=== PATIENT | female | born 1980 | race Caucasian/White ===

== ENCOUNTER 2017-10-27 16:41 | Emergency (ER) | payer SELFPAY ==
[~2017-10-27] VITALS: Ht 139.7 cm; Wt 50.0 kg
[~2017-10-27 16:41] MED LIST: BACTRIM DS1 TAB OR; CIPRO500 MG OR; CIPROFLOXACN500 MG PO; CLARITHROMYC500 M2 PO; CLEOCIN150 MG OR; CORTISPORIN OTI10 ML AD; HEMOCYTE325 MG OR; LORTAB 1010 MG PO; LORTAB5 OR; METHIMAZOLE5 MG OR; METRONIDAZOL500 MG PO; NAPROSYN500 MG OR; NO HOME MEDS; PERCOCET 5/325M1 TAB OR; PRENATAL1 TAB OR; PREVACID30 M2 PO; PROCHLORPER25 MG RE; REGLAN10 MG OR; TENORMIN25 MG OR; ULTRAM50 M1 PO; ZOFRAN4 MG OR; ZPAK PO
[2017-10-27 17:20] LABS: HEMATOCRIT 33.6 % (37.0-47.0); HEMOGLOBIN 10.2 g/dl (12.0-16.0); IMMATURE GRANULOCYTES 0.5 % (0.0-1.0); MEAN CELL VOLUME 78.1 fL CALC (80.0-100.0); MEAN CORPUSCULAR HGB 23.7 pG CALC (26.0-32.0); MEAN CORPUSCULAR HGB CONC 30.4 g/L CALC (32.0-36.0); NEUT# 4.99 thou/uL (2.00-7.15); RED BLOOD COUNT 4.3 mill/uL (4.20-5.60); RED CELL DISTRI WIDTH 15.4 % (11.5-15.5)
[2017-10-27 17:52] LABS: BARBITURATES NEGATIVE (NEGATIVE); COCAINE NEGATIVE (NEGATIVE); METHADONE NEGATIVE (NEGATIVE); OXCYCODONE NEGATIVE (NEGATIVE); TETRAHYDROCANNABIONOL NEGATIVE (NEGATIVE); TRICYLIC ANTIDEPRESSANTS NEGATIVE (NEGATIVE)
[2017-10-27 17:53] LABS: ALKALINE PHOSPHATASE 68 u/l (38-126); ANION GAP 15 (6-22 (CALC)); BILIRUBIN, TOTAL 0.4 mg/dL (0.0-1.4); BUN 20 mg/dL (7-17); BUN/CREATININE RATIO 21 (12-20 (CALC)); CARBON DIOXIDE 28 mmol/l (22-30); CHLORIDE 102 mmol/l (95-108); GFR > 60 ML/MIN (>=60 (CALC)); GFR FOR AFR.AMER. > 60 ML/MIN (>=60 (CALC)); LIPASE 47 u/l (23-300); POTASSIUM 4.1 mmol/l (3.5-5.1); SGPT/ALT 31 u/l (9-52); SODIUM 141 mmol/l (137-146); TOTAL PROTEIN 7.4 g/dL (6.3-8.2)
[2017-10-27 18:04] LABS: SGOT/AST 52 u/l (14-36)
[2017-10-27] MEDS ORDERED: MEDDOSEPAK PO (18:14)
[2017-10-27 18:34] VITALS: BP 96/61
== END 2017-10-27 18:40 | disposition home or self-care (01) | DRG 313 ==
LOC: ED 16:41
PROVIDERS: Emergency Medicine
DX: R07.89 Other chest pain (principal); R20.2 Paresthesia of skin; Z79.82 Long term (current) use of aspirin

== ENCOUNTER 2018-09-03 10:35 | Emergency (ER) | payer MEDICAID ==
[~2018-09-03] VITALS: Ht 139.7 cm; Wt 55.0 kg
[~2018-09-03 10:35] MED LIST changes: +MEDDOSEPAK PO
[2018-09-03 11:27] LABS: HEMATOCRIT 35.5 % (37.0-47.0); HEMOGLOBIN 10.6 g/dl (12.0-16.0); IMMATURE GRANULOCYTES 0.7 % (0.0-5.0); MEAN CORPUSCULAR HGB 23.3 pG CALC (26.0-32.0); MEAN CORPUSCULAR HGB CONC 29.9 g/L CALC (32.0-36.0); NEUT# 3.75 thou/uL (2.00-7.15); RED BLOOD COUNT 4.55 mill/uL (4.20-5.60); RED CELL DISTRI WIDTH 15.9 % (11.5-15.5)
[2018-09-03 11:29] LABS: URINE BILIRUBIN - DIPSTICK NEGATIVE (NEGATIVE); URINE BLOOD DIPSTICK NEGATIVE (NEGATIVE); URINE COLOR YELLOW; URINE GLUCOSE - DIPSTICK NEGATIVE (NEGATIVE); URINE KETONE NEGATIVE (NEGATIVE); URINE LEUK ESTERASE NEGATIVE (NEGATIVE); URINE NITRITE - DIPSTICK NEGATIVE (Negative); URINE PROTEIN - DIPSTICK NEGATIVE (NEG-TRACE); URINE UROBILINOGEN - DIPSTICK 0.2 E.U./dL (0.2)
[2018-09-03 11:31] LABS: BARBITURATES NEGATIVE (NEGATIVE); COCAINE NEGATIVE (NEGATIVE); METHADONE NEGATIVE (NEGATIVE); OXCYCODONE NEGATIVE (NEGATIVE); TETRAHYDROCANNABIONOL NEGATIVE (NEGATIVE); TRICYLIC ANTIDEPRESSANTS NEGATIVE (NEGATIVE)
[2018-09-03 12:13] LABS: ALBUMIN 4.1 g/dL (3.2-5.0); ALKALINE PHOSPHATASE 59 u/l (38-126); ANION GAP 14 (6-22 (CALC)); BILIRUBIN, TOTAL 0.4 mg/dL (0.0-1.4); BUN 19 mg/dL (7-17); BUN/CREATININE RATIO 30 (12-20 (CALC)); CARBON DIOXIDE 25 mmol/l (22-30); CHLORIDE 105 mmol/l (95-108); CREATININE 0.6 mg/dL (0.5-1.0); GFR > 60 ML/MIN (>=60 (CALC)); GFR FOR AFR.AMER. > 60 ML/MIN (>=60 (CALC)); MAGNESIUM 1.9 mg/dL (1.6-2.3); POTASSIUM 4.5 mmol/l (3.5-5.1); SGOT/AST 23 u/l (14-36); SODIUM 139 mmol/l (137-146); TOTAL PROTEIN 7.2 g/dL (6.3-8.2)
[2018-09-03 13:26] VITALS: BP 101/45
== END 2018-09-03 13:34 | disposition home or self-care (01) ==
LOC: ED 10:35
DX: R20.0 Anesthesia of skin (principal); M54.2 Cervicalgia; M54.6 Pain in thoracic spine; M25.471 Effusion, right ankle; M25.472 Effusion, left ankle; Y93.44 Activity, trampolining; Y93.39 Activity, other involving climbing, rappelling and jumping off; Y92.007 Garden or yard of unspecified non-institutional (private) residence as the place of occurrence of the external cause